=== PATIENT | male | born 1990 | race African-American/Black ===

== ENCOUNTER 2016-11-02 16:04 | Emergency (ER) | payer OTHER ==
[~2016-11-02 16:04] MED LIST: AMLODIPINE BESY10 MG PO; HYDROCHLOROTH12.5 MG PO; LOSARTAN POTASS50 MG PO; VOLTAREN50 MG PO; ZESTRIL40 MG PO
== END 2016-11-02 16:10 | disposition home or self-care (01) ==
LOC: CFTX 16:04
DX: K08.89 Other specified disorders of teeth and supporting structures (principal); K08.409 Partial loss of teeth, unspecified cause, unspecified class; I10 Essential (primary) hypertension; F17.210 Nicotine dependence, cigarettes, uncomplicated
CPT/HCPCS: 96372; 99283; J1885

== ENCOUNTER 2017-01-23 18:43 | Emergency (ER) | payer OTHER | END 2017-01-23 19:50 | disposition home or self-care (01) | LOC: CED 18:43 → CFTX 19:39 → CED 19:39 → CFTX 19:50 | DX: S39.012A Strain of muscle, fascia and tendon of lower back, initial encounter (principal); F17.200 Nicotine dependence, unspecified, uncomplicated; X50.0XXA Overexertion from strenuous movement or load, initial encounter; Y92.9 Unspecified place or not applicable | CPT/HCPCS: 96372; 99283; J1885 ==

== ENCOUNTER 2017-02-24 18:19 | Emergency (ER) | payer OTHER ==
[~2017-02-24] VITALS: Ht 172.7 cm; Wt 65.8 kg
--- NOTE | ~2017-02-24 | CT71 ---
[facility] A Service [facility] RADIOLOGY TEXT RESULTS PATIENT: JONO NERI LOCATION: [facility]I : [birth year] UNIT #: [id number] AGE: [address]: Rocio Barrientos MD SEX: M ORDER DR: [id number] [facility] [address] [place], [place] [address] [id number] E MR#: [id number] Acc #: [id number] NAME: JONO NERI : 1990 SEX: M STUDY DATE/TIME: 02/24/2017 19:10 UNIT: ELLI ROOM: STUDY DESCRIPTION: CT Head Wo Contrast Attending Physician: Rocio Barrientos M.D. Ordering Physician: Jimbo Sebastian M.D. Primary Care Physician: Yisel Greene MEDICAL IMAGING REPORT This report is preliminary unless electronic signature is present EXAM Head CT without HISTORY Hypertension and lupus, posterior headache, fever for 2 days with dizziness. COMMENT Routine noncontrasted head CT is reviewed. The comparison study is from 04/04/2016. This CT exam was performed with one or more of the following radiation dose reduction techniques: Automatic exposure control, adjustment of mA and/or kV according to patient size, and iterative reconstruction. There is no displaced calvarial fracture. Minor mucosal disease in the visualized right maxillary sinus. No air-fluid level. Mastoid air cells are clear. There is no evidence for acute intracranial hemorrhage or extraaxial fluid collection. The ventricles are normal in size and configuration and the cheng-white junction is well maintained. The basilar cisterns are patent. No intracranial mass effect. IMPRESSION No acute intracranial abnormality. Dictated by... Meaghan Cyr M.D. THIS IS AN ELECTRONICALLY VERIFIED REPORT Meaghan Cyr M.D. at 02/25/2017 2:50 PM [facility] A Service [facility] RADIOLOGY TEXT RESULTS PATIENT: JONO NERI LOCATION: [facility] : [birth year] UNIT #: [id number] AGE: [address]: Rocio Barrientos MD SEX: M ORDER DR: CAROLEE/thea TD: 02/25/2017 01:35 JOB #: [id number] MEDICAL IMAGING REPORT Page 1 of 1 COPY
--- NOTE | ~2017-02-24 | EKG ---
PATIENT: JONO NERI UNIT #: [id number] Ventricular Rate: 76 BPM Atrial Rate: 76 BPM P-R Interval: 154 ms QRS Duration: 90 ms Q-T Interval: 370 ms QTC Calculation(Bezet): 416 ms P [place]: 43 degrees Calculated R [place]: 15 degrees Calculated T [place]: 50 degrees Diagnosis Line: Normal sinus rhythm Diagnosis Line: Minimal voltage criteria for LVH, may be normal Diagnosis Line: variant Diagnosis Line: Borderline ECG Diagnosis Line: When compared with ECG of 13-MAY-2016 12:47, Diagnosis Line: No significant change was found Diagnosis Line: Confirmed by CAROL RUSSELL MD ([id number]) on Diagnosis Line: 02/25/2017 10:34:23 PM INTERPRETING MD: DEANDRE
--- NOTE | ~2017-02-24 | CR72 ---
[facility] A Service of [facility] RADIOLOGY TEXT RESULTS PATIENT: JONO NERI LOCATION: [facility] : [birth year] UNIT #: [id number] AGE: [address]: Rocio Barrientos MD SEX: M ORDER DR: [id number] [facility] [address] [place], [place] [address] [id number] E MR#: [id number] Acc #: [id number] NAME: JONO NERI : 1990 SEX: M STUDY DATE/TIME: 02/24/2017 19:54 UNIT: [facility] ROOM: STUDY DESCRIPTION: CR Chest Single View Portable Attending Physician: Rocio Barrientos M.D. Ordering Physician: Ed Deni Sebastian M.D. Primary Care Physician: Yisel Greene MEDICAL IMAGING REPORT This report is preliminary unless electronic signature is present EXAM Portable chest HISTORY Fever and hypertension since yesterday. FINDINGS A single AP portable view of the chest shows both lungs to be clear. The heart is normal in size. The mediastinal contour is normal. No significant bone abnormalities are seen. IMPRESSION Normal portable chest. Dictated by... Cornell Lopez M.D. THIS IS AN ELECTRONICALLY VERIFIED REPORT Cornell Lopez M.D. at 02/25/2017 6:24 PM RAHEL/eddie TD: 02/25/2017 02:00 JOB #: [id number] MEDICAL IMAGING REPORT Page 1 of 1 COPY
[2017-02-24 19:04] LABS: BASOPHIL% 0.7 % (0-2.5); EOSINOPHIL# 0.1 X10e3 (0-0.7); EOSINOPHIL% 0.9 % (0.0-7.0); HEMATOCRIT 45.1 % (38.0-50.0); HEMOGLOBIN 15.7 gm/dL (13.0-16.0); LYMPHOCYTE# 0.9 X10e3 (1.0-3.5); LYMPHOCYTE% 17.7 % (17.0-45.0); MEAN CELL VOLUME 88.1 FL (83-96); MEAN CORPUSCULAR HEMOGLOBIN 30.7 PG (28-34); MEAN CORPUSCULAR HGB CONC 34.9 g/dL (30-36); MEAN PLATELET VOLUME 9.6 FL (6.5-11.5); MONOCYTE# 0.4 X10e3 (0-1.0); NEUTROPHIL# 3.9 X10e3 (1.5-7.1); NEUTROPHIL% 72.7 % (40-75); PLATELET COUNT 118 X10e3 (140-420); RED BLOOD COUNT 5.12 X10e (3.90-5.60); RED CELL DISTRIBUTION WIDTH 12.6 % (11.0-15.5); WHITE BLOOD COUNT 5.3 X10e3 (4.0-10.5)
[2017-02-24 19:05] LABS: DIFF IND NO
[2017-02-24 19:12] LABS: PROTHROMBIN TIME (PATIENT) 11.3 SECONDS (10.0-11.7)
[2017-02-24 19:18] LABS: POC - CKMB <1.0 ng/mL (0.0-7.9); POC - TROPONIN <0.05 ng/mL (<=0.05)
[2017-02-24 19:19] LABS: ALBUMIN SERUM 4.7 g/dL (3.5-5.0); BILIRUBIN, DIRECT 0.1 mg/dL (0.0-0.2); BILIRUBIN,INDIRECT 0.6 mg/dL (0.0-0.9); BILIRUBIN,TOTAL 0.7 mg/dL (0.2-2.0); CALCIUM SERUM 9.4 mg/dL (8.4-10.2); CREATININE SERUM 0.8 mg/dL (0.6-1.4); POTASSIUM 3.8 mmol/L (3.5-5.1); PROTEIN TOTAL SERUM 8.1 g/dL (6.0-8.3)
[2017-02-24 19:53] LABS: URINE SOURCE CLEAN CATCH
[2017-02-24 19:58] LABS: URINE APPEARANCE CLEAR; URINE BILIRUBIN NEG (NEG); URINE BLOOD NEG (NEG); URINE COLOR YELLOW; URINE GLUCOSE NEG (NEG); URINE KETONE 1+ (NEG); URINE LEUKOCYTE ESTERASE NEG (NEG); URINE NITRATE NEG (NEG); URINE PH 8.5 (5-8); URINE PROTEIN 1+ (NEG); URINE SPECIFIC GRAVITY 1.022 (1.003-1.035)
[2017-02-24 20:00] LABS: URBCS1 AUWI 0-2 /[HPF] (0-2); URINE BACTERIA AUWI NEG (NEGATIVE); URINE SQUAMOUS EPITHELIAL CELL NONE SEEN /[HPF]; UWBCS1 AUWI 0-2 (0-5)
[2017-02-24 20:02] LABS: CULTURE INDICATED? NO
== END 2017-02-24 21:48 | disposition home or self-care (01) ==
LOC: CED 18:19
PROVIDERS: Emergency Medicine
DX: I10 Essential (primary) hypertension (principal); R51 Headache; R50.9 Fever, unspecified
CPT/HCPCS: 36415; 70450; 71010; 80048; 80076; 81003; 82553; 84484; 85025; 85610; 93005; 99285